=== PATIENT | male | born 1945 | race Caucasian/White ===

== ENCOUNTER 2019-07-16 17:27 | Inpatient (IN) | payer OTHER ==
[2019-07-16] MEDS ORDERED: ACETAMINOPHEN 325 MG TABLET (FP) PO ONE (19:16)
--- NOTE | 2019-07-16 19:24 | PDOC ---
History of Present Illness - General Chief Complaint: Injury Stated Complaint: FRACTURED FOOT Time Seen by Provider: 07/16/19 17:46 - History of Present Illness Initial Comments: The pt is a 74M w/ a history of DM, HTN, HLD who presents for evaluation of 2 days of R ankle pain. The pt was seen at an urgent care where an x-ray was performed which showed a Distal R fibular fx with a possible medial mallelous fx. The pt has been ambulating with minimal pain since yesterday. The pt reports a mechanical fall from standing. Denies fevers/chills, vision changes, chest pain, trouble breathing, abdominal pain, N/V/C/D 07/16/19 19:19 Family now adds that pt was he was on the floor for 3-4 hours after the fall. He also does not know if he hit his head or not. 07/16/19 19:53 Past History - Past Medical History Allergies/Adverse Reactions: Allergies Allergy/AdvReac Type Severity Reaction Status Date / Time No Known Drug Allergies Allergy Verified 07/16/19 17:41 Home Medications: Ambulatory Orders Acarbose [Precose -] 100 mg PO TID 05/01/12 Amlodipine Besylate [Norvasc -] 5 mg PO BID 05/01/12 Insulin Lispro [Humalog] 20 SQ ACBK 05/01/12 Insulin Lispro [Humalog] 30 unit SQ ACDIN 05/01/12 Insulin Regular, Human [Humulin R] 22 unit SQ HS 05/01/12 Sitagliptin Phosphate [Januvia] 50 mg PO DAILY 05/01/12 Tamsulosin HCl 0.4 mg PO BID 08/24/12 Ciprofloxacin [Cipro -] 500 mg PO BID #6 tablet 08/27/12 Insulin Regular, Human [Humulin R -] 26 units SQ DAILY 08/27/12 Oxycodone HCl/Acetaminophen [Percocet 5-325 mg Tablet] 1 - 2 tab PO PRN PRN #30 tablet 08/27/12 Anemia: No Asthma: No Cancer: No Cardiac Disorders: No CVA: No COPD: No CHF: No Dementia: No Diabetes: Yes GI Disorders: No Disorders: Yes (KIDNEY STONES; STENTS) HTN: Yes Hypercholesterolemia: Yes Liver Disease: No Seizures: No Thyroid Disease: No - Surgical History Abdominal Surgery: No Appendectomy: No Cardiac Surgery: No Cholecystectomy: Yes Lung Surgery: No Neurologic Surgery: No Orthopedic Surgery: Yes (BROKEN FOOT W/PINS AND SCREWS - LEFT) - Psycho Social/Smoking Cessation Hx Smoking History: Former smoker Have you smoked in the past 12 months: No If you are a former smoker, when did you quit?: 17 YRS Information on smoking cessation initiated: No Hx Alcohol Use: No Drug/Substance Use Hx: No Substance Use Type: None Hx Substance Use Treatment: No Review of Systems - Review of Systems Able to Perform ROS?: Yes Comments:: GENERAL/CONSTITUTIONAL: No fever or chills. No weakness HEAD, EYES, EARS, NOSE AND THROAT: No change in vision. No change in hearing. No sore throat CARDIOVASCULAR: No chest pain or shortness of breath RESPIRATORY: Denies cough, hemoptysis GASTROINTESTINAL: No nausea, vomiting, diarrhea or constipation GENITOURINARY: No dysuria, frequency, or change in urination MUSCULOSKELETAL: per HPI SKIN: No rash NEUROLOGIC: No headache, vertigo, loss of consciousness, or change in strength/ sensation ENDOCRINE: No increased thirst. No abnormal weight change HEMATOLOGIC/LYMPHATIC: No anemia, easy bleeding, or history of blood clots ALLERGIC/IMMUNOLOGIC: No hives or skin allergy 07/16/19 19:25 Is the patient limited Indian proficient: No *Physical Exam - Vital Signs Last Vital Signs Temp Pulse Resp BP Pulse Ox 97.9 F 71 16 131/84 96 07/16/19 17:38 07/16/19 17:38 07/16/19 17:38 07/16/19 17:38 07/16/19 17:38 - Physical Exam GENERAL: Awake, alert, and oriented to person/place/time, in no acute distress HEAD: No signs of trauma, normocephalic, atraumatic EYES: PERRLA, EOMI, sclera anicteric, conjunctiva clear ENT: Hearing grossly normal, nares patent, oropharynx clear without exudates. Moist mucosa LUNGS: No distress, speaks in full sentences, clear to auscultation bilaterally HEART: Regular rate and rhythm, normal S1 and S2, no murmurs appreciated, peripheral pulses normal and equal bilaterally ABDOMEN: Soft, nontender, normoactive bowel sounds. No guarding, no rebound EXTREMITIES: Moves all extremities independently. R lateral malleolus TTP w/o erythema/ecchymosis or obvious deformity. No R medial malleolus TTP. Pt ambulated into ED. No diabetic wounds. NEUROLOGICAL: Cranial nerves II through XII grossly intact. Normal speech, no focal sensorimotor deficits SKIN: Warm, Dry 07/16/19 19:25 ED Treatment Course - LABORATORY CBC & Chemistry Diagram: 07/16/19 19:50 07/16/19 19:50 - RADIOLOGY Radiology Studies Ordered: Category Date Time Status LOWER EXTREMITY CT W/O CONTR [CT] Stat CT Scan 07/16/19 19:15 Ordered Medical Decision Making - Medical Decision Making The pt is a 74M w/ a history of DM, HTN, HLD who presents for evaluation of 2 days of R ankle pain. The pt was seen at an urgent care where an x-ray was performed which showed a Distal R fibular fx with a possible medial mallelous fx ED Course CT R ankle w/o Tylenol for pain CMP, CBC, CK, Coags CT head 07/16/19 19:29 CT RLE with comminuted distal fibula fx and posterior malleolus fx noted -Pt placed in posterior leg splint with stirrup -DP intact, cap refill < 2 sec 07/16/19 22:12 Elevated CK and elevated Cr noted Pt reports baseline CrCl 40, today 33 Will give IVF No leukocytosis Mild anemia, no indication for transfusion at this time Lytes unremarkable Trop I neg Plan for admission for rhabdo and R ankle fx [employer] sent Pt to receive IVF Pt signed out to Dr. Mcguire 07/16/19 22:20 Discharge - Discharge Information Problems reviewed: Yes Clinical Impression/Diagnosis: Rhabdomyolysis Qualifiers: Rhabdomyolysis type: non-traumatic Qualified Code(s): M62.82 - Rhabdomyolysis Closed right ankle fracture Qualifiers: Encounter type: initial encounter Qualified Code(s): S82.891A - Other fracture of right lower leg, initial encounter for closed fracture Condition: Stable - Admission Yes - Follow up/Referral Referrals: Susan Hoover MD [Primary Care Provider] - - Patient Discharge Instructions - Post Discharge Activity
--- NOTE | 2019-07-16 19:46 | PDOC ---
Documentation entered by Pierre Galaviz SCRIBE, acting as scribe for Indira Portillo MD. Indira Portillo MD: This documentation has been prepared by the Anastacia jha Xhesika, SCRIBE, under my direction and personally reviewed by me in its entirety. I confirm that the documentation accurately reflects all work, treatment, procedures, and medical decision making performed by me. Attending Attestation - Resident Resident Name: Jean Claude Anne - ED Attending Attestation I have performed the following: I have examined & evaluated the patient, The case was reviewed & discussed with the resident, I agree w/resident's findings & plan, Exceptions are as noted - HPI HPI: 07/16/19 19:27 This 74-year-old male went to [facility] after he had a mechanical fall on Monday and has had persistent pain in his right ankle He usually walks with a cane . X-ray was obtained at the urgent care center that showed an acute fracture of the distal fibula and a possible nondisplaced medial malleolus fracture 07/16/19 21:32 - Physicial Exam PE: 07/16/19 19:29 alert and conversant and ambulatory 74 yo male head ncat neck supple lungs cta b/l cvs [id number] skin warm and dry abd nontender ext lateral right ankle pain neuro ax0x3,motor strength 5/5 b/l - Medical Decision Making 07/16/19 19:31 This 74-year-old male fell on Monday and was on the floor for at least 3 hours. Family states he does not remember exactly what happened so therefore we will get a CAT scan of the head and do some basic lab work. imp Rt fracture of distal fibula plan imaging study to r/o malleolar fracture 07/16/19 19:45 07/16/19 22:22 CPK is greater than 1700 Patient's ankle fracture was splinted with both sugar tong and posterior splint 07/16/19 22:39 -to be admitted for rhabdo, right ankle fracture(ortho consult)
[2019-07-16 20:09] LABS: BASO % 0.3 % (0-2.0); EOS % 1.3 % (0-4.5); HEMATOCRIT 33.4 % (35.4-49); HEMOGLOBIN 10.9 GM/dL (11.7-16.9); LYMPH % 15.8 % (8-40); MCHC 32.7 g/dl (32.0-35.9); MEAN CELL VOLUME 85.6 fl (80-96); MEAN PLT VOLUME 9.8 fl (7.5-11.1); MONO % 8.3 % (3.8-10.2); NEUT % 74.3 % (42.8-82.8); PLATELET COUNT 119 K/MM3 (134-434); RBC 3.91 M/mm3 (4.00-5.60); RDW 16.9 % (11.9-15.9); WHITE BLOOD COUNT 5.8 K/mm3 (4.0-10.0)
[2019-07-16 20:21] LABS: INR 1.06 (0.83-1.09); PROTHROMBIN TIME (PATIENT) 12.5 SEC (9.7-13.0)
[2019-07-16 20:24] LABS: ACTIVATED PTT 31.6 SECONDS (25.2-36.5)
[2019-07-16] MEDS ORDERED: ACETAMINOPHEN 325 MG TABLET (FP) ONE (20:54)
[2019-07-16 21:02] LABS: ALBUMIN 3.5 g/dl (3.4-5.0); BILIRUBIN,TOTAL 0.9 mg/dL (0.2-1); CALCIUM 8.4 mg/dL (8.5-10.1); CREATININE 1.9 mg/dL (0.55-1.3); POTASSIUM 4.3 mmol/L (3.5-5.1)
[2019-07-16] MEDS ORDERED: SODIUM CHLORIDE 0.9% 500 ML INFUS.BAG IV ONE ×2 (21:23→22:32)
[2019-07-16] MEDS ORDERED: SODIUM CHLORIDE 1,000 ML IV SCH (23:45)
--- NOTE | 2019-07-16 23:48 | HP ---
Admitting History and Physical - Primary Care Physician PCP: Susan Hoover - Admission Chief Complaint: Right Ankle Pain, Generalized Weakness History of Present Illness: This is a 74 y/o male with a PMHx of DM, HTN, HLD. Who presents to the ED for evaluation of 2 days of R ankle pain. Per ED records: The patient was seen at an urgent care where an x-ray was performed which showed a Distal R fibular fx with a possible medial mallelous fx. The pt has been ambulating with minimal pain since yesterday. The pt reports a mechanical fall from standing. Denies fevers/chills, vision changes, chest pain, trouble breathing, abdominal pain, N/V/C/D Family now adds that pt was he was on the floor for 3-4 hours after the fall. He also does not know if he hit his head or not. History Source: Patient, Family Member Limitations to Obtaining History: No Limitations - Past Medical History Cardiovascular: Yes: HTN, Hyperlipdemia Endocrine: Yes: Diabetes Mellitus - Smoking History Smoking history: Former smoker Have you smoked in the past 12 months: No If you are a former smoker, when did you quit?: 17 YRS - Alcohol/Substance Use Hx Alcohol Use: No Home Medications - Allergies Allergies/Adverse Reactions: Allergies Allergy/AdvReac Type Severity Reaction Status Date / Time No Known Drug Allergies Allergy Verified 07/16/19 17:41 - Home Medications Home Medications: Ambulatory Orders Amlodipine Besylate [Norvasc -] 5 mg PO BID 05/01/12 Insulin Lispro [Humalog] 3 unit SQ ACBK 05/01/12 Insulin Lispro [Humalog] 38 unit SQ ACDIN 05/01/12 Sitagliptin Phosphate [Januvia] 25 mg PO DAILY 05/01/12 Tamsulosin HCl 0.4 mg PO BID 08/24/12 Allopurinol [Zyloprim -] 100 mg PO DAILY 07/17/19 Finasteride 5 mg PO DAILY 07/17/19 Hydrochlorothiazide 12.5 mg PO DAILY 07/17/19 Insulin Lispro [Humalog] 15 unit SQ ACLD 07/17/19 Rosuvastatin Calcium 10 mg PO HS 07/17/19 Family Medical History Family History: Unable to Obtain Review of Systems - Review of Systems Constitutional: reports: Weakness Eyes: reports: No Symptoms HENT: reports: No Symptoms Neck: reports: No Symptoms Cardiovascular: reports: No Symptoms Respiratory: reports: No Symptoms Gastrointestinal: reports: No Symptoms Genitourinary: reports: No Symptoms Musculoskeletal: reports: Decreased ROM, Joint Pain, Joint Swelling Endocrine: reports: No Symptoms Hematology/Lymphatic: reports: No Symptoms Psychiatric: reports: No Symptoms Physical Examination Vital Signs: Vital Signs Temperature 97.9 F 07/16/19 17:38 Pulse Rate 71 07/16/19 17:38 Respiratory Rate 16 07/16/19 17:38 Blood Pressure 131/84 07/16/19 17:38 O2 Sat by Pulse Oximetry (%) 96 07/16/19 17:38 Constitutional: Yes: No Distress, Calm, Obese Eyes: Yes: WNL, Conjunctiva Clear, EOM Intact, PERRL HENT: Yes: Atraumatic, Normocephalic, Other (dry mucous membranes) Neck: Yes: WNL, Supple, Trachea Midline Cardiovascular: Yes: Regular Rate and Rhythm, S1, S2 Respiratory: Yes: Diminished (bases) Gastrointestinal: Yes: Normal Bowel Sounds, Soft, Abdomen, Obese ...Rectal Exam: Yes: Deferred Renal/: Yes: WNL Breast(s): Yes: WNL Extremities: Yes: Other (sugar tong posterior splint noted right ankle) Edema: No Peripheral Pulses WNL: Yes Neurological: Yes: WNL, Alert, Oriented, Cran Nerves II-XII Intact ...Motor Strength: LUE, LLE, RUE Psychiatric: Yes: WNL, Alert, Oriented Labs: CBC, BMP 07/16/19 19:50 07/16/19 19:50 Intake & Output 07/14/19 07/15/19 07/16/19 07/17/19 23:59 23:59 23:59 23:59 Weight 112.491 kg 109.089 kg Current Medications Generic Name Dose Route Start Last Admin Trade Name Freq PRN Reason Stop Dose Admin Allopurinol 100 mg 07/17/19 10:00 07/17/19 10:26 Zyloprim - PO 100 mg DAILY RAFI Administration Amlodipine Besylate 5 mg 07/17/19 10:00 07/17/19 10:25 Norvasc - PO 5 mg BID RAFI Administration Enoxaparin Sodium 40 mg 07/18/19 10:00 Lovenox - SQ DAILY RAFI Finasteride 5 mg 07/17/19 10:00 07/17/19 10:25 Proscar - PO 5 mg DAILY RAFI Administration Sodium Chloride 1,000 mls @ 150 mls/hr 07/16/19 23:45 07/17/19 01:53 Normal Saline - IV 150 mls/hr ASDIR RAFI Administration Insulin Aspart 1 vial 07/17/19 11:00 07/17/19 11:07 Novolog Vial Sliding Scale - SQ Not Given ACHS [facility] Protocol Rosuvastatin Calcium 10 mg 07/17/19 22:00 Crestor - PO HS RAFI Tamsulosin HCl 0.4 mg 07/17/19 22:00 Flomax - PO 0830,2200 RAFI Imaging - Results Cat Scan: Image Reviewed (Head CT- no intracranial pathology Lower Extremity CT - acute nondisplaced fx of the distal tibia posterioly/posterior malleolus) EKG: Image Reviewed (SR with 1st degree AV block, T wave abnormality) Problem List - Problems (1) Rhabdomyolysis Code(s): M62.82 - RHABDOMYOLYSIS Qualifiers: Rhabdomyolysis type: non-traumatic Qualified Code(s): M62.82 - Rhabdomyolysis (2) Closed right ankle fracture Code(s): S82.891A - OTH FRACTURE OF RIGHT LOWER LEG, INIT FOR CLOS FX Qualifiers: Encounter type: initial encounter Qualified Code(s): S82.891A - Other fracture of right lower leg, initial encounter for closed fracture (3) SATYA (acute kidney injury) Code(s): N17.9 - ACUTE KIDNEY FAILURE, UNSPECIFIED (4) HTN (hypertension) Code(s): I10 - ESSENTIAL (PRIMARY) HYPERTENSION (5) HLD (hyperlipidemia) Code(s): E78.5 - HYPERLIPIDEMIA, UNSPECIFIED (6) Diabetes mellitus Code(s): E11.9 - TYPE 2 DIABETES MELLITUS WITHOUT COMPLICATIONS Assessment/Plan This is a 74 y/o man with a PMHx of HTN, HLD, DM. Admitted to Telemetry for Rhabdomyolysis, Acute Right Ankle Fracture, SATYA for further evaluation of their emergent condition. Plan: Admit Likely secondary to fall Continue cardiac monitoring Serial enzymes Fluid resuscitation given in ED Continue NS fluids Appreciate Cardiology consult Appreciate Ortho consult Appreciate Nephrology consult Elevate extremity Splint applied in ED Neurovascular checks Offirmev, Morphine Sulfate prn BGMs ISS Monitor CBC, BMP FEN- NS@150ml/hr, replete lytes prn, NPO DVT ppx- OOB, SCDs, Heparin SQ Dispo: Requires Inpatient Care Visit type - Emergency Visit Emergency Visit: Yes ED Registration Date: 07/16/19 Care time: The patient presented to the Emergency Department on the above date and was hospitalized for further evaluation of their emergent condition. - New Patient This patient is new to me today: Yes Date on this admission: 07/16/19 - Critical Care Critical Care patient: No
[2019-07-17 06:45] LABS: BASO % 0.5 % (0-2.0); EOS % 1.6 % (0-4.5); HEMATOCRIT 29.8 % (35.4-49); LYMPH % 18.7 % (8-40); MCH 28.4 pg (25.7-33.7); MCHC 33.5 g/dl (32.0-35.9); MEAN CELL VOLUME 84.6 fl (80-96); MEAN PLT VOLUME 9.1 fl (7.5-11.1); MONO % 9.6 % (3.8-10.2); NEUT % 69.6 % (42.8-82.8); PLATELET COUNT 105 K/MM3 (134-434); RBC 3.53 M/mm3 (4.00-5.60); RDW 16.6 % (11.9-15.9); WHITE BLOOD COUNT 4.4 K/mm3 (4.0-10.0)
[2019-07-17 07:21] LABS: ALBUMIN 3.2 g/dl (3.4-5.0); BLOOD UREA NITROGEN 28.3 mg/dL (7-18); CALCIUM 8.1 mg/dL (8.5-10.1); CREATININE 1.8 mg/dL (0.55-1.3); MAGNESIUM 1.8 mg/dL (1.8-2.4); PHOSPHOROUS 3.2 mg/dL (2.5-4.9); POTASSIUM 4.2 mmol/L (3.5-5.1); TOT PROT 6.3 g/dl (6.4-8.2)
--- NOTE | 2019-07-17 08:42 | EKG ---
Test Reason : Blood Pressure : / mmHG Vent. Rate : 069 BPM Atrial Rate : 069 BPM P-R Int : 242 ms QRS Dur : 098 ms QT Int : 436 ms P-R-T Axes : 032 031 092 degrees QTc Int : 467 ms SINUS RHYTHM WITH 1ST DEGREE A-V BLOCK ABNORMAL QRS-T ANGLE, CONSIDER PRIMARY T WAVE ABNORMALITY ABNORMAL ECG NO PREVIOUS ECGS AVAILABLE Confirmed by MD CAMMY, KAVITHA ([id number]) on 07/17/2019 8:41:47 AM Referred By: Confirmed By:KAVITHA CHAWLA MD
--- NOTE | 2019-07-17 09:01 | PN ---
Progress Note (short form) - Note Progress Note: 74 yo man had a hypoglycemic episode at home 2 days ago, fell and could not get up was on the floor for couple of hours until help arrived has been walking on his feet since went to see repeater operator yesterday and urgent care to evaluate his right ankle pain-was told he had a fracture and was sent to ed Laboratory Results - last 24 hr 07/16/19 07/16/19 07/16/19 19:50 19:50 19:50 WBC 5.8 RBC 3.91 L Hgb 10.9 L Hct 33.4 L MCV 85.6 MCH 28.0 MCHC 32.7 RDW 16.9 H Plt Count 119 L MPV 9.8 Absolute Neuts (auto) 4.3 Neutrophils % 74.3 Lymphocytes % 15.8 Monocytes % 8.3 Eosinophils % 1.3 Basophils % 0.3 Nucleated RBC % 0 PT with INR 12.50 INR 1.06 PTT (Actin FS) 31.6 Sodium 140 Potassium 4.3 Chloride 104 Carbon Dioxide 29 Anion Gap 6 L BUN 32.0 H Creatinine 1.9 H Est GFR (CKD-EPI)AfAm 38.83 Est GFR (CKD-EPI)NonAf 33.50 Random Glucose 208 H Hemoglobin A1c % Calcium 8.4 L Phosphorus Magnesium Total Bilirubin 0.9 AST 49 H ALT 26 Alkaline Phosphatase 77 Creatine Kinase Creatine Kinase Index CK-MB (CK-2) Troponin I Total Protein 7.0 Albumin 3.5 TSH Blood Type Antibody Screen 07/16/19 07/17/19 07/17/19 19:50 02:00 06:20 WBC 4.4 RBC 3.53 L Hgb 10.0 L Hct 29.8 L MCV 84.6 MCH 28.4 MCHC 33.5 RDW 16.6 H Plt Count 105 L MPV 9.1 Absolute Neuts (auto) 3.1 Neutrophils % 69.6 Lymphocytes % 18.7 Monocytes % 9.6 Eosinophils % 1.6 Basophils % 0.5 Nucleated RBC % 0 PT with INR INR PTT (Actin FS) Sodium Potassium Chloride Carbon Dioxide Anion Gap BUN Creatinine Est GFR (CKD-EPI)AfAm Est GFR (CKD-EPI)NonAf Random Glucose Hemoglobin A1c % Calcium Phosphorus Magnesium Total Bilirubin AST ALT Alkaline Phosphatase Creatine Kinase 1725 H Cancelled Creatine Kinase Index 0.2 CK-MB (CK-2) 4.5 H Troponin I < 0.02 Cancelled Total Protein Albumin TSH Blood Type Antibody Screen 07/17/19 07/17/19 07/17/19 06:20 06:20 06:20 WBC RBC Hgb Hct MCV MCH MCHC RDW Plt Count MPV Absolute Neuts (auto) Neutrophils % Lymphocytes % Monocytes % Eosinophils % Basophils % Nucleated RBC % PT with INR INR PTT (Actin FS) Sodium 142 Potassium 4.2 Chloride 108 H Carbon Dioxide 29 Anion Gap 4 L BUN 28.3 H Creatinine 1.8 H Est GFR (CKD-EPI)AfAm 41.45 Est GFR (CKD-EPI)NonAf 35.76 Random Glucose 217 H Hemoglobin A1c % 7.1 H Calcium 8.1 L Phosphorus 3.2 Magnesium 1.8 Total Bilirubin 1.0 AST 35 ALT 22 Alkaline Phosphatase 70 Creatine Kinase 1076 H Creatine Kinase Index 0.2 CK-MB (CK-2) 3.2 Troponin I < 0.02 Total Protein 6.3 L Albumin 3.2 L TSH 1.02 Blood Type Antibody Screen 07/17/19 06:20 WBC RBC Hgb Hct MCV MCH MCHC RDW Plt Count MPV Absolute Neuts (auto) Neutrophils % Lymphocytes % Monocytes % Eosinophils % Basophils % Nucleated RBC % PT with INR INR PTT (Actin FS) Sodium Potassium Chloride Carbon Dioxide Anion Gap BUN Creatinine Est GFR (CKD-EPI)AfAm Est GFR (CKD-EPI)NonAf Random Glucose Hemoglobin A1c % Calcium Phosphorus Magnesium Total Bilirubin AST ALT Alkaline Phosphatase Creatine Kinase Creatine Kinase Index CK-MB (CK-2) Troponin I Total Protein Albumin TSH Blood Type O POSITIVE Antibody Screen Negative Vital Signs Period Temp Pulse Resp BP Sys/Newell Pulse Ox Last 24 Hr 97.9 F 71-72 14-18 131-140/69-84 93-96 s1s2 rrr lungs cta abd soft non tender right ankle in cast left ankle +pitting edema aaox3 normally ambulates with cane and is totally independent offers no complaints at present imp right distal non displaced tibia fracture acute rhabdomyolysis type 2 insulin dependent diabetes CKD stage 3 baseline creat ~1.7 BPH HTN high cholesterol nephrolithiasis plan iv hydration hold diabetic meds and diuretics for now npo until orthopedic evaluation monitor cpk dvt prophylaxis if no surgery planned
--- NOTE | 2019-07-17 10:08 | PN ---
Progress Note (short form) - Note Progress Note: Chart reviewed. Will see patient this evening. Nondisplaced ankle fracture. Strict NWB. Ok to be OOB to chair. Elevate limb.
[2019-07-17] MEDS ORDERED: amLODIPine BESYLATE 5 MG TABLET (FP) ONE (10:19)
[2019-07-17] MEDS ORDERED: ALLOPURINOL 100 MG TABLET (FP) ONE (10:19)
[2019-07-17] MEDS: FINASTERIDE 5 MG TABLET (FP) PO SCH (10:25)
[2019-07-17] MEDS: amLODIPine BESYLATE 5 MG TABLET (FP) PO SCH ×2 (10:25→22:07)
[2019-07-17] MEDS: ALLOPURINOL 100 MG TABLET (FP) PO SCH (10:26)
[2019-07-17] MEDS: INSULIN SLIDING SCALE (NOVOLOG) 1 VIAL SQ SCH ×3 (11:07→22:41)
--- NOTE | 2019-07-17 13:01 | CONSULT ---
Consult Consult Specialty:: Nephrology Reason for Consultation:: satya and rhabdo - History of Present Illness Chief Complaint: right ankle pain History of Present Illness: Pt is a 74 year old male with pmhx of DM, htn, and hld who presents to the ER with right ankle pain. He was fount to have a fracture. He was on the floor for 3 ot 4 hours after the fall. He was found to have elevated creatinine and I was called to evaluate him. He was also found to have rhabdo. He denies shortness of breath. He denies dysuria. He is awake and alert. He is not a great historian. He denies fevers or chills. - History Source History Provided By: Patient, Medical Record - Past Medical History Cardio/Vascular: Yes: HTN, Hyperlipdemia Endocrine: Yes: Diabetes Mellitus - Alcohol/Substance Use Hx Alcohol Use: No - Smoking History Smoking history: Former smoker Have you smoked in the past 12 months: No If you are a former smoker, when did you quit?: 17 YRS Home Medications - Allergies Allergies/Adverse Reactions: Allergies Allergy/AdvReac Type Severity Reaction Status Date / Time No Known Drug Allergies Allergy Verified 07/16/19 17:41 - Home Medications Home Medications: Ambulatory Orders Amlodipine Besylate [Norvasc -] 5 mg PO BID 05/01/12 Insulin Lispro [Humalog] 3 unit SQ ACBK 05/01/12 Insulin Lispro [Humalog] 38 unit SQ ACDIN 05/01/12 Sitagliptin Phosphate [Januvia] 25 mg PO DAILY 05/01/12 Tamsulosin HCl 0.4 mg PO BID 08/24/12 Allopurinol [Zyloprim -] 100 mg PO DAILY 07/17/19 Finasteride 5 mg PO DAILY 07/17/19 Hydrochlorothiazide 12.5 mg PO DAILY 07/17/19 Insulin Lispro [Humalog] 15 unit SQ ACLD 07/17/19 Rosuvastatin Calcium 10 mg PO HS 07/17/19 Family Medical History Family History: Denies Review of Systems - Review of Systems Constitutional: reports: Malaise Eyes: reports: No Symptoms HENT: reports: No Symptoms Neck: reports: No Symptoms Cardiovascular: reports: No Symptoms Respiratory: reports: No Symptoms Gastrointestinal: reports: No Symptoms Genitourinary: reports: No Symptoms Musculoskeletal: reports: Muscle Pain Integumentary: reports: No Symptoms Endocrine: reports: No Symptoms Hematology/Lymphatic: reports: No Symptoms Physical Exam Vital Signs: Vital Signs Temperature 98 F 07/17/19 10:43 Pulse Rate 67 07/17/19 10:43 Respiratory Rate 18 07/17/19 10:43 Blood Pressure 135/65 07/17/19 10:43 O2 Sat by Pulse Oximetry (%) 94 L 07/17/19 09:00 Constitutional: Yes: Calm Eyes: Yes: Conjunctiva Clear HENT: Yes: Atraumatic Neck: Yes: Supple Cardiovascular: Yes: S1, S2 Respiratory: Yes: CTA Bilaterally Gastrointestinal: Yes: Soft Renal/: Yes: WNL Musculoskeletal: Yes: Other (right leg pain) Neurological: Yes: Oriented Psychiatric: Yes: Oriented Labs: CBC, BMP 07/17/19 06:20 07/17/19 06:20 Laboratory Tests 07/16/19 07/16/19 07/16/19 19:50 19:50 19:50 Hgb 10.9 L Sodium Potassium Chloride Creatinine 1.9 H Creatine Kinase 1725 H 07/17/19 07/17/19 07/17/19 06:20 06:20 06:20 Hgb 10.0 L Sodium 142 Potassium 4.2 Chloride 108 H Creatinine 1.8 H Creatine Kinase 1076 H Imaging - Results Cat Scan: Report Reviewed Problem List - Problems (1) SATYA (acute kidney injury) Code(s): N17.9 - ACUTE KIDNEY FAILURE, UNSPECIFIED (2) Closed right ankle fracture Code(s): S82.891A - OTH FRACTURE OF RIGHT LOWER LEG, INIT FOR CLOS FX Qualifiers: Encounter type: initial encounter Qualified Code(s): S82.891A - Other fracture of right lower leg, initial encounter for closed fracture (3) Diabetes mellitus Code(s): E11.9 - TYPE 2 DIABETES MELLITUS WITHOUT COMPLICATIONS (4) HLD (hyperlipidemia) Code(s): E78.5 - HYPERLIPIDEMIA, UNSPECIFIED (5) HTN (hypertension) Code(s): I10 - ESSENTIAL (PRIMARY) HYPERTENSION (6) Rhabdomyolysis Code(s): M62.82 - RHABDOMYOLYSIS Qualifiers: Rhabdomyolysis type: non-traumatic Qualified Code(s): M62.82 - Rhabdomyolysis Assessment/Plan Current Medications Generic Name Dose Route Start Last Admin Trade Name Freq PRN Reason Stop Dose Admin Allopurinol 100 mg 07/17/19 10:00 07/17/19 10:26 Zyloprim - PO 100 mg DAILY RAFI Administration Amlodipine Besylate 5 mg 07/17/19 10:00 07/17/19 10:25 Norvasc - PO 5 mg BID RAFI Administration Enoxaparin Sodium 40 mg 07/18/19 10:00 Lovenox - SQ DAILY RAFI Finasteride 5 mg 07/17/19 10:00 07/17/19 10:25 Proscar - PO 5 mg DAILY RAFI Administration Sodium Chloride 1,000 mls @ 150 mls/hr 07/16/19 23:45 07/17/19 01:53 Normal Saline - IV 150 mls/hr ASDIR RAFI Administration Insulin Aspart 1 vial 07/17/19 11:00 07/17/19 11:07 Novolog Vial Sliding Scale - SQ Not Given ACHS [facility] Protocol Rosuvastatin Calcium 10 mg 07/17/19 22:00 Crestor - PO HS RAFI Tamsulosin HCl 0.4 mg 07/17/19 22:00 Flomax - PO 0830,2200 [facility] Impression 1. SATYA 2. rhabdo 3. s/p fall 4. right leg fracture 5. dm 6. htn Plan - cpk improving - repeat cpk level in am - repeat cmp in am - check renal ultrasound - decrease rate of fluids - can give lasix of he develops signs of overload - check ua - check myoglobin
[2019-07-17 14:00] VITALS: BMI 38.8
[2019-07-17] MEDS ORDERED: SODIUM CHLORIDE 1,000 ML IV SCH (17:32)
[2019-07-17] MEDS: SODIUM CHLORIDE 1,000 ML IV SCH (17:38)
--- NOTE | 2019-07-17 20:56 | CONS ---
DATE OF CONSULTATION: 07/17/2019 CHIEF COMPLAINT: Right ankle pain. HISTORY OF PRESENT ILLNESS: This is a 74-year-old gentleman who suffered a trip and fall. He had pain in the ankle and was unable to ambulate afterwards. He had initially been able to walk on the ankle, but this worsened today. He was seen previously in an urgent care with radiographs demonstrating a bimalleolar fracture. Patient was lying on the floor for several hours after the fall and was admitted with rhabdomyolysis. PAST MEDICAL HISTORY: Significant for diabetes, hypertension, hyperlipidemia. SOCIAL HISTORY: He is a former smoker. Denies any alcohol use. MEDICATIONS: Reviewed as in chart. REVIEW OF SYMPTOMS: Negative for any fever, chills, nausea, vomiting, or night sweats. PHYSICAL EXAMINATION: General: This is an elderly male in no acute distress. He is seen sitting in the chair comfortably. Right Lower Extremity: Demonstrates a splint in place. The toes have sensation, capillary refill, and motor intact. There is mild swelling present. Radiographs reviewed, demonstrating a nondisplaced Yu C distal fibular fracture and a small medial malleolar avulsion. The mortise is maintained. ASSESSMENT: Right bimalleolar ankle fracture. PLAN: I discussed today's findings with the patient. I left a message for his daughter as well. He suffered a bimalleolar ankle fracture. This type of ankle fracture has the potential to be unstable. However, in its position on CT, it was anatomically reduced, and therefore, no surgery is needed at this time. He is to be strictly nonweightbearing. He will continue in his splint for now. I would like to repeat radiographs in 1 week, and we can convert him to a cast at that time after his swelling has stabilized. He is okay to perform transfers using a walker. He should elevate for swelling. I recommend starting vitamin D which will be ordered in the computer as well to awning hanger helper in fracture healing. RICHARD VARGHESE M.D. [facility]/[id number]
[2019-07-17] MEDS: ROSUVASTATIN CA 10 MG TABLET (FP) PO SCH (22:07)
[2019-07-17] MEDS: TAMSULOSIN HCL 0.4 MG CAP PO SCH (22:07)
[2019-07-17] MEDS: CALCIUM 500MG/VIT-D 200 UNITS COMBO TABLET (FP) PO SCH (22:07)
[2019-07-17 22:11] LABS: EPI CELLS 0.5 /HPF (0-5/HPF); HYALINE CASTS 0 /lpf (0-8); PH,URINE 6.5 (5.0-8.0); URINE APPEARANCE CLEAR; URINE BACTERIA 5.7 /hpf (NEGATIVE); URINE BILIRUBIN NEGATIVE (NEGATIVE); URINE COLOR YELLOW; URINE GLUCOSE (UA) 1+ (NEGATIVE); URINE KETONE NEGATIVE (NEGATIVE); URINE LEUK ESTERASE NEGATIVE (NEGATIVE); URINE NITRITE NEGATIVE (NEGATIVE); URINE PROTEIN 1+ (NEGATIVE); URINE RBC 17 /hpf (0-4); URINE WBC 1 /hpf (0-5)
[2019-07-18] MEDS: SODIUM CHLORIDE 1,000 ML IV SCH (00:07)
[2019-07-18 07:27] LABS: ALBUMIN 3.1 g/dl (3.4-5.0); BILIRUBIN,TOTAL 0.6 mg/dL (0.2-1); CALCIUM 8.3 mg/dL (8.5-10.1); CREATININE 1.8 mg/dL (0.55-1.3); TOT PROT 6.2 g/dl (6.4-8.2)
[2019-07-18 07:34] LABS: BASO % 0.4 % (0-2.0); EOS % 2.5 % (0-4.5); HEMATOCRIT 29.2 % (35.4-49); HEMOGLOBIN 9.9 GM/dL (11.7-16.9); LYMPH % 19.7 % (8-40); MCH 28.6 pg (25.7-33.7); MCHC 33.8 g/dl (32.0-35.9); MEAN CELL VOLUME 84.4 fl (80-96); MEAN PLT VOLUME 9.7 fl (7.5-11.1); MONO % 8.2 % (3.8-10.2); NEUT % 69.2 % (42.8-82.8); PLATELET COUNT 106 K/MM3 (134-434); RBC 3.46 M/mm3 (4.00-5.60); RDW 16.7 % (11.9-15.9); WHITE BLOOD COUNT 4.8 K/mm3 (4.0-10.0)
--- NOTE | 2019-07-18 07:50 | PN ---
Progress Note (short form) - Note Progress Note: CBC, BMP 07/17/19 06:20 07/18/19 06:00 CPK pending renal US reviewed, known staghorn calculus Vital Signs Period Temp Pulse Resp BP Sys/Newell Pulse Ox Last 24 Hr 97.6 F-98.3 F 67-76 18-20 125-156/65-81 94-97 s1s2 rrr lungs cta abd soft non tender right ankle in cast left ankle tr edema aaox3 normally ambulates with cane and is totally independent offers no complaints at present imp right distal non displaced tibia fracture acute rhabdomyolysis type 2 insulin dependent diabetes CKD stage 3 baseline creat ~1.7 BPH HTN high cholesterol nephrolithiasis plan iv hydration consults appreciated PT eval for ambulation may need rehab dc planning
[2019-07-18] MEDS: INSULIN SLIDING SCALE (NOVOLOG) 1 VIAL SQ SCH ×4 (08:08→21:58)
[2019-07-18] MEDS ORDERED: PT OWN MED DRAWER 7, Y5N ONE (09:58)
[2019-07-18] MEDS: FINASTERIDE 5 MG TABLET (FP) PO SCH (10:00)
[2019-07-18] MEDS: TAMSULOSIN HCL 0.4 MG CAP PO SCH ×2 (10:00→21:48)
[2019-07-18] MEDS: ALLOPURINOL 100 MG TABLET (FP) PO SCH (10:00)
[2019-07-18] MEDS: amLODIPine BESYLATE 5 MG TABLET (FP) PO SCH ×2 (10:00→21:51)
[2019-07-18] MEDS: CALCIUM 500MG/VIT-D 200 UNITS COMBO TABLET (FP) PO SCH ×2 (10:00→21:48)
[2019-07-18] MEDS: ENOXAPARIN NA (PORCINE) 40 MG/0.4 ML DISP.SYRIN SQ SCH (10:00)
--- NOTE | 2019-07-18 15:53 | PN ---
Progress Note, Physician History of Present Illness: Pt seen and examined at bedside. He is awake and alert. He denies shortness of breath. - Current Medication List Current Medications: Active Medications Allopurinol (Zyloprim -) 100 mg PO DAILY [facility] Last Admin: 07/18/19 10:00 Dose: 100 mg Documented by: Amlodipine Besylate (Norvasc -) 5 mg PO BID [facility] Last Admin: 07/18/19 10:00 Dose: 5 mg Documented by: Calcium Carbonate/Cholecalciferol (Os-Jayson 500+D -) 1 tab PO BID [facility] Last Admin: 07/18/19 10:00 Dose: 1 tab Documented by: Enoxaparin Sodium (Lovenox -) 40 mg SQ DAILY [facility] Last Admin: 07/18/19 10:00 Dose: 40 mg Documented by: Finasteride (Proscar -) 5 mg PO DAILY [facility] Last Admin: 07/18/19 10:00 Dose: 5 mg Documented by: Sodium Chloride (Normal Saline -) 1,000 mls @ 100 mls/hr IV ASDIR [facility] Last Admin: 07/18/19 00:07 Dose: 100 mls/hr Documented by: Insulin Aspart (Novolog Vial Sliding Scale -) [address] [facility]; Protocol Last Admin: 07/18/19 13:09 Dose: 4 units Documented by: Rosuvastatin Calcium (Crestor -) 10 mg PO HS [facility] Last Admin: 07/17/19 22:07 Dose: 10 mg Documented by: Sitagliptin Phosphate (Januvia -) 25 mg PO 0700 [facility] Last Admin: 07/18/19 10:00 Dose: 25 mg Documented by: Tamsulosin HCl (Flomax -) 0.4 mg PO 0830,2200 [facility] Last Admin: 07/18/19 10:00 Dose: 0.4 mg Documented by: - Objective Vital Signs: Vital Signs Temperature 97.4 F L 07/18/19 13:22 Pulse Rate 69 07/18/19 13:22 Respiratory Rate 18 07/18/19 13:22 Blood Pressure 135/60 07/18/19 13:22 O2 Sat by Pulse Oximetry (%) 95 07/18/19 09:00 Constitutional: Yes: Calm Eyes: Yes: Conjunctiva Clear HENT: Yes: Atraumatic Neck: Yes: Supple Cardiovascular: Yes: S1, S2 Respiratory: Yes: CTA Bilaterally Gastrointestinal: Yes: Soft Genitourinary: Yes: WNL Musculoskeletal: Yes: Other (right leg pain) Edema: No Neurological: Yes: Oriented Psychiatric: Yes: Oriented Labs: CBC, BMP 07/18/19 06:20 07/18/19 06:00 INR, PTT INR 1.06 (0.83-1.09) 07/16/19 19:50 Problem List - Problems (1) SATYA (acute kidney injury) Code(s): N17.9 - ACUTE KIDNEY FAILURE, UNSPECIFIED (2) Closed right ankle fracture Code(s): S82.891A - OTH FRACTURE OF RIGHT LOWER LEG, INIT FOR CLOS FX Qualifiers: Encounter type: initial encounter Qualified Code(s): S82.891A - Other fracture of right lower leg, initial encounter for closed fracture (3) Diabetes mellitus Code(s): E11.9 - TYPE 2 DIABETES MELLITUS WITHOUT COMPLICATIONS (4) HLD (hyperlipidemia) Code(s): E78.5 - HYPERLIPIDEMIA, UNSPECIFIED (5) HTN (hypertension) Code(s): I10 - ESSENTIAL (PRIMARY) HYPERTENSION (6) Rhabdomyolysis Code(s): M62.82 - RHABDOMYOLYSIS Qualifiers: Rhabdomyolysis type: non-traumatic Qualified Code(s): M62.82 - Rhabdomyolysis Assessment/Plan Current Medications Generic Name Dose Route Start Last Admin Trade Name Freq PRN Reason Stop Dose Admin Allopurinol 100 mg 07/17/19 10:00 07/18/19 10:00 Zyloprim - PO 100 mg DAILY [facility] Administration Amlodipine Besylate 5 mg 07/17/19 10:00 07/18/19 10:00 Norvasc - PO 5 mg BID [facility] Administration Calcium Carbonate/Cholecalciferol 1 tab 07/17/19 22:00 07/18/19 10:00 Os-Jayson 500+D - PO 1 tab BID [facility] Administration Enoxaparin Sodium 40 mg 07/18/19 10:00 07/18/19 10:00 Lovenox - SQ 40 mg DAILY [facility] Administration Finasteride 5 mg 07/17/19 10:00 07/18/19 10:00 Proscar - PO 5 mg DAILY [facility] Administration Sodium Chloride 1,000 mls @ 100 mls/hr 07/17/19 17:33 07/18/19 00:07 Normal Saline - IV 100 mls/hr ASDIR [facility] Administration Insulin Aspart 1 vial 07/17/19 11:00 07/18/19 13:09 Novolog Vial Sliding Scale - SQ 4 units ACHS [facility] Administration Protocol Rosuvastatin Calcium 10 mg 07/17/19 22:00 07/17/19 22:07 Crestor - PO 10 mg HS [facility] Administration Sitagliptin Phosphate 25 mg 07/18/19 08:15 07/18/19 10:00 Januvia - PO 25 mg 0700 [facility] Administration Tamsulosin HCl 0.4 mg 07/17/19 22:00 07/18/19 10:00 Flomax - PO 0.4 mg 0830,2200 [facility] Administration Impression 1. SATYA 2. rhabdo 3. s/p fall 4. right leg fracture 5. dm 6. htn Plan - cpk is improving - montor renal function - change fluids to 1/2 ns and decrease rate - renal ultrasound reviewe, will order ct - repeat labs in am - follow urine studies
[2019-07-18] MEDS ORDERED: SODIUM CHLORIDE 0.45% 1,000 ML IV SCH (16:00)
[2019-07-18 19:16] LABS: EPI CELLS 0.3 /HPF (0-5/HPF); HYALINE CASTS 1 /lpf (0-8); URINE APPEARANCE CLEAR; URINE BACTERIA 2.7 /hpf (NEGATIVE); URINE BILIRUBIN NEGATIVE (NEGATIVE); URINE COLOR YELLOW; URINE GLUCOSE (UA) 2+ (NEGATIVE); URINE KETONE NEGATIVE (NEGATIVE); URINE LEUK ESTERASE NEGATIVE (NEGATIVE); URINE NITRITE NEGATIVE (NEGATIVE); URINE PROTEIN 1+ (NEGATIVE); URINE RBC 2 /hpf (0-4); URINE UROBILINOGEN 0.2 mg/dL (0.2-1.0); URINE WBC 0 /hpf (0-5)
[2019-07-18] MEDS: ROSUVASTATIN CA 10 MG TABLET (FP) PO SCH (21:48)
[2019-07-19] MEDS: INSULIN SLIDING SCALE (NOVOLOG) 1 VIAL SQ SCH ×3 (06:35→16:53)
[2019-07-19 06:55] LABS: ALBUMIN 3.3 g/dl (3.4-5.0); BILIRUBIN,TOTAL 0.7 mg/dL (0.2-1); BLOOD UREA NITROGEN 30.5 mg/dL (7-18); CALCIUM 8.5 mg/dL (8.5-10.1); CREATININE 1.7 mg/dL (0.55-1.3); POTASSIUM 4.2 mmol/L (3.5-5.1); TOT PROT 6.5 g/dl (6.4-8.2)
--- NOTE | 2019-07-19 08:30 | DS ---
Physical Examination Vital Signs: Vital Signs Temperature 97.5 F L 07/19/19 05:00 Pulse Rate 68 07/19/19 05:00 Respiratory Rate 18 07/19/19 05:00 Blood Pressure 148/75 07/19/19 05:00 O2 Sat by Pulse Oximetry (%) 95 07/18/19 09:00 Constitutional: Yes: Well Nourished, Obese Eyes: Yes: EOM Intact HENT: Yes: Normocephalic Neck: Yes: Trachea Midline Cardiovascular: Yes: Regular Rate and Rhythm Respiratory: Yes: CTA Bilaterally Gastrointestinal: Yes: Normal Bowel Sounds, Soft, Abdomen, Obese Extremities: Yes: WNL, Other (right leg in cast) Edema: LLE: Trace, RLE: Trace Peripheral Pulses WNL: Yes Neurological: Yes: WNL Psychiatric: Yes: WNL Labs: CBC, BMP 07/18/19 06:20 07/19/19 06:00 CPK 240s Discharge Summary Problems reviewed: Yes Reason For Visit: DIABETES MELLITUS- RHABDOMYLYSIS Current Active Problems SATYA (acute kidney injury) (Acute) Closed right ankle fracture (Acute) Diabetes mellitus (Acute) HLD (hyperlipidemia) (Acute) HTN (hypertension) (Acute) Rhabdomyolysis (Acute) Hospital Course: admitted after fall and right distal non displaced tibia fracture and acute traumatic rhabdomyolysis PMH of type 2 insulin dependent diabetes CKD stage 3 baseline creat ~1.7 BPH HTN high cholesterol nephrolithiasis CPK normalized after iv hydration leg was casted, seen by ortho, continue cast with absolute non weigth bearing status and orthopedic follow up next week for reevaluation medically stable to dc to str until able to independently ambulate Condition: Stable - Instructions Diet, Activity, Other Instructions: use walker to transfer keep leg elevated follow up with for repeat xrays and evaluation Referrals: Susan Hoover MD [Primary Care Provider] - Disposition: [facility] - Home Medications Comprehensive Discharge Medication List: Ambulatory Orders Allopurinol (Zyloprim -) 100 mg PO DAILY [facility] Last Admin: 07/19/19 10:40 Dose: 100 mg Documented by: Amlodipine Besylate (Norvasc -) 5 mg PO BID [facility] Last Admin: 07/19/19 10:40 Dose: 5 mg Documented by: Calcium Carbonate/Cholecalciferol (Os-Jayson 500+D -) 1 tab PO BID [facility] Last Admin: 07/19/19 10:40 Dose: 1 tab Documented by: Enoxaparin Sodium (Lovenox -) 40 mg SQ DAILY [facility] Last Admin: 07/19/19 10:41 Dose: 40 mg Documented by: Finasteride (Proscar -) 5 mg PO DAILY [facility] Last Admin: 07/19/19 10:40 Dose: 5 mg Documented by: Insulin Aspart (Novolog Vial Sliding Scale -) 1 vial SQ [facility]; Protocol Last Admin: 07/19/19 13:47 Dose: Not Given Documented by: Rosuvastatin Calcium (Crestor -) 10 mg PO HS [facility] Last Admin: 07/18/19 21:48 Dose: 10 mg Documented by: Sitagliptin Phosphate (Januvia -) 25 mg PO 0700 [facility] Last Admin: 07/19/19 06:35 Dose: 25 mg Documented by: Tamsulosin HCl (Flomax -) 0.4 mg PO 0830,2200 [facility] Last Admin: 07/19/19 10:40 Dose: 0.4 mg Documented by:
[2019-07-19] MEDS: amLODIPine BESYLATE 5 MG TABLET (FP) PO SCH (10:40)
[2019-07-19] MEDS: FINASTERIDE 5 MG TABLET (FP) PO SCH (10:40)
[2019-07-19] MEDS: ALLOPURINOL 100 MG TABLET (FP) PO SCH (10:40)
[2019-07-19] MEDS: TAMSULOSIN HCL 0.4 MG CAP PO SCH (10:40)
[2019-07-19] MEDS: CALCIUM 500MG/VIT-D 200 UNITS COMBO TABLET (FP) PO SCH (10:40)
[2019-07-19] MEDS: ENOXAPARIN NA (PORCINE) 40 MG/0.4 ML DISP.SYRIN SQ SCH (10:41)
--- NOTE | 2019-07-19 15:08 | PN ---
Progress Note, Physician History of Present Illness: Pt seen and examined at bedside. he is awake and alert. he denies shortness of breath. - Current Medication List Current Medications: Active Medications Allopurinol (Zyloprim -) 100 mg PO DAILY [facility] Last Admin: 07/19/19 10:40 Dose: 100 mg Documented by: Amlodipine Besylate (Norvasc -) 5 mg PO BID [facility] Last Admin: 07/19/19 10:40 Dose: 5 mg Documented by: Calcium Carbonate/Cholecalciferol (Os-Jayson 500+D -) 1 tab PO BID [facility] Last Admin: 07/19/19 10:40 Dose: 1 tab Documented by: Enoxaparin Sodium (Lovenox -) 40 mg SQ DAILY [facility] Last Admin: 07/19/19 10:41 Dose: 40 mg Documented by: Finasteride (Proscar -) 5 mg PO DAILY [facility] Last Admin: 07/19/19 10:40 Dose: 5 mg Documented by: Insulin Aspart (Novolog Vial Sliding Scale -) 1 vial SQ [facility]; Protocol Last Admin: 07/19/19 13:47 Dose: Not Given Documented by: Rosuvastatin Calcium (Crestor -) 10 mg PO HS [facility] Last Admin: 07/18/19 21:48 Dose: 10 mg Documented by: Sitagliptin Phosphate (Januvia -) 25 mg PO 0700 [facility] Last Admin: 07/19/19 06:35 Dose: 25 mg Documented by: Tamsulosin HCl (Flomax -) 0.4 mg PO 0830,2200 [facility] Last Admin: 07/19/19 10:40 Dose: 0.4 mg Documented by: - Objective Vital Signs: Vital Signs Temperature 98.1 F 07/19/19 13:35 Pulse Rate 70 07/19/19 13:35 Respiratory Rate 20 07/19/19 13:35 Blood Pressure 138/67 07/19/19 13:35 O2 Sat by Pulse Oximetry (%) 95 07/19/19 09:00 Constitutional: Yes: Calm Eyes: Yes: Conjunctiva Clear HENT: Yes: Atraumatic Neck: Yes: Supple Cardiovascular: Yes: S1, S2 Respiratory: Yes: CTA Bilaterally Gastrointestinal: Yes: Soft Genitourinary: Yes: WNL Edema: No Neurological: Yes: Oriented Psychiatric: Yes: Oriented Labs: CBC, BMP 07/18/19 06:20 07/19/19 06:00 INR, PTT INR 1.06 (0.83-1.09) 07/16/19 19:50 Problem List - Problems (1) SATYA (acute kidney injury) Code(s): N17.9 - ACUTE KIDNEY FAILURE, UNSPECIFIED (2) Closed right ankle fracture Code(s): S82.891A - OTH FRACTURE OF RIGHT LOWER LEG, INIT FOR CLOS FX Qualifiers: Encounter type: initial encounter Qualified Code(s): S82.891A - Other fracture of right lower leg, initial encounter for closed fracture (3) Diabetes mellitus Code(s): E11.9 - TYPE 2 DIABETES MELLITUS WITHOUT COMPLICATIONS (4) HLD (hyperlipidemia) Code(s): E78.5 - HYPERLIPIDEMIA, UNSPECIFIED (5) HTN (hypertension) Code(s): I10 - ESSENTIAL (PRIMARY) HYPERTENSION (6) Rhabdomyolysis Code(s): M62.82 - RHABDOMYOLYSIS Qualifiers: Rhabdomyolysis type: non-traumatic Qualified Code(s): M62.82 - Rhabdomyolysis Assessment/Plan Current Medications Generic Name Dose Route Start Last Admin Trade Name Freq PRN Reason Stop Dose Admin Allopurinol 100 mg 07/17/19 10:00 07/19/19 10:40 Zyloprim - PO 100 mg DAILY [facility] Administration Amlodipine Besylate 5 mg 07/17/19 10:00 07/19/19 10:40 Norvasc - PO 5 mg BID [facility] Administration Calcium Carbonate/Cholecalciferol 1 tab 07/17/19 22:00 07/19/19 10:40 Os-Jayson 500+D - PO 1 tab BID [facility] Administration Enoxaparin Sodium 40 mg 07/18/19 10:00 07/19/19 10:41 Lovenox - SQ 40 mg DAILY [facility] Administration Finasteride 5 mg 07/17/19 10:00 07/19/19 10:40 Proscar - PO 5 mg DAILY [facility] Administration Insulin Aspart 1 vial 07/17/19 11:00 07/19/19 13:47 Novolog Vial Sliding Scale - SQ Not Given ACHS [facility] Protocol Rosuvastatin Calcium 10 mg 07/17/19 22:00 07/18/19 21:48 Crestor - PO 10 mg HS [facility] Administration Sitagliptin Phosphate 25 mg 07/18/19 08:15 07/19/19 06:35 Januvia - PO 25 mg 0700 [facility] Administration Tamsulosin HCl 0.4 mg 07/17/19 22:00 07/19/19 10:40 Flomax - PO 0.4 mg 0830,2200 [facility] Administration Laboratory Tests 07/17/19 07/19/19 22:00 06:00 Creatine Kinase 242 Urine Myoglobin Pending Impression 1. SATYA 2. rhabdo 3. s/p fall 4. right leg fracture 5. dm 6. htn Plan - cpk improved - can d/c fluids - will need outpt follow up - ct shows calculi and hydro on left side - urology eval
[2019-07-19] MEDS ORDERED: INSULIN (NOVOLOG) ASPART 100 UNITS/ML 10ML VIAL ONE ×2 (16:50→16:51)
[2019-07-19 19:30] VITALS: BP 147/78; PULSE 76; TEMP 98
== END 2019-07-19 19:31 | DRG 565 ==
LOC: JERFT 17:27 → JER 17:27 → JERBED 22:27 → J7W 07-17 13:22
PROVIDERS: ADMIT Internal Medicine; ATTEND Internal Medicine
DX: T79.6XXA Traumatic ischemia of muscle, initial encounter (principal); N17.9 Acute kidney failure, unspecified; N13.30 Unspecified hydronephrosis; E11.9 Type 2 diabetes mellitus without complications; I10 Essential (primary) hypertension; E78.00 Pure hypercholesterolemia, unspecified; E78.5 Hyperlipidemia, unspecified; S82.451A Displaced comminuted fracture of shaft of right fibula, initial encounter for closed fracture; S82.891A Other fracture of right lower leg, initial encounter for closed fracture; N40.0 Benign prostatic hyperplasia without lower urinary tract symptoms; N20.0 Calculus of kidney; E66.9 Obesity, unspecified; Z68.37 Body mass index [BMI] 37.0-37.9, adult; I12.9 Hypertensive chronic kidney disease with stage 1 through stage 4 chronic kidney disease, or unspecified chronic kidney disease; E11.22 Type 2 diabetes mellitus with diabetic chronic kidney disease; N18.3 Chronic kidney disease, stage 3 (moderate); Z87.891 Personal history of nicotine dependence; W18.39XA Other fall on same level, initial encounter; Y92.89 Other specified places as the place of occurrence of the external cause
CPT/HCPCS: 36415; 70450-TC; 73700-TC-RT; 74150-TC; 76775-TC; 80053; 81003; 82436; 82550; 82553; 82565; 82962; 83036; 83735; 83874; 84100; 84133; 84300; 84443; 84484; 85025; 85610; 85730; 86850; 86900; 86901; 93005; 93010; 97116-GP; 97162-GP; 99285-25; J7030